=== PATIENT | male | born 1970 | race Caucasian/White ===

== ENCOUNTER 2020-03-19 13:09 | Emergency (ER) | payer BC ==
[~2020-03-19 13:09] MED LIST: Iopamidol-370 76% 500 ML 1 ML ONE
[2020-03-19 13:57] LABS: #Lymphocytes 0.8 thou/uL (1.20-3.40); #Monocytes 0.3 thou/uL (0.11-0.59); #Neutrophils 3.9 thou/uL (1.40-6.50); %Basophils 0.1 % (0.0-1.0); %Eosinophils 0.2 % (0.0-10.0); %Lymphocytes 16.5 % (21.0-51.0); %Monocytes 5.4 % (0.0-10.0); %Neutrophils 77.8 % (42.0-75.0); Mean Corpuscular HGB CONC 34.9 g/dL (32.0-36.0); Mean Corpuscular Hemoglobin 31.5 pg (27.0-31.0); Mean Corpuscular Volume 90.3 fL (78.0-98.0); Mean Platelet Volume 7.8 fL (7.4-10.4); Platelet Count 164 thou/uL (130-400); RBC Distribution Width 11.8 % (11.5-14.5); Red Blood Cell (RBC) Count 5.08 mill/uL (4.70-6.10)
[2020-03-19] MEDS ORDERED: Dexamethasone 10 MG/ML VIAL ONE (14:03)
[2020-03-19 14:13] LABS: ALT (SGPT) 27 U/L (8-55); AST (SGOT) 21 U/L (5-34); Alkaline Phosphatase 55 U/L (40-110); Anion Gap 17 mmol/L (10-20); BUN (Urea Nitrogen) 11 mg/dL (8.4-25.7); Bilirubin, Total 0.3 mg/dL (0.2-1.2); CK (CPK) 64 U/L (30-200); Calc. Creatinine Clearance 0 mL/min (70-130); Calcium 8.4 mg/dL (7.8-10.44); Carbon Dioxide 22 mmol/L (22-29); Chloride 98 mmol/L (98-107); Estimated GFR-MDRD 71; Globulin 3.5 g/dL (2.4-3.5); Glucose 256 mg/dL (70-105); Lipase 69 U/L (8-78); Potassium 3.2 mmol/L (3.5-5.1); Protein, Total 7.5 g/dL (6.0-8.3); Sodium 134 mmol/L (136-145)
--- NOTE | 2020-03-19 14:16 | RAD ---
EXAM: XR Chest 1 View Portable PROVIDED CLINICAL HISTORY: Cough and fever COMPARISON: 06/16/2016 FINDINGS: Heart size appears normal for portable technique. There is patchy bibasilar airspace disease. No pleu ral fluid or pneumothorax apparent. IMPRESSION: Patchy bibasilar airspace disease, compatible with pneumonia in the appropriate clinical context. Fol low-up is recommended.
--- NOTE | 2020-03-19 15:15 | CT ---
CT angiogram chest with IV contrast and 3-D imaging HISTORY: Dyspnea. Chest pain. Cough. FINDINGS: There is good contrast opacification of the central pulmonary arteries and the thoracic aor ta with normal branching of the great vessels at the aortic arch. Mid to peripheral pulmonary arteries are not well evaluated due to extensive motion artifact. Widespread ill-defined peripheral patchy areas of groundglass infiltrate involving each lung. No pleu ral fluid, lobar consolidation, or mass apparent. Nonenlarged, nonspecific lymph nodes scattered about the mediastinum. Calcified granulomata and mediastinal lymph nodes are consistent with healed granulomatous disease. IMPRESSION : No evidence of pulmonary embolus. Patchy bilateral infiltrates as often seen with COVID pneumonitis.
== END 2020-03-19 16:17 | disposition home or self-care (01) ==
LOC: ERS 13:09
DX: U07.1 COVID-19 (principal); I10 Essential (primary) hypertension; J45.909 Unspecified asthma, uncomplicated; Z79.899 Other long term (current) drug therapy
CPT/HCPCS: 71045; 71275; 80053; 82550; 83690; 83880; 84484; 85025; 85379; 93005; 96374; J1100; Q9967

== ENCOUNTER 2020-03-23 10:26 | Inpatient (IN) | payer BC ==
[2020-03-23] MEDS ORDERED: Aspirin Chewable 81 MG TAB ONE (10:43)
[2020-03-23] MEDS ORDERED: Enoxaparin Sodium 100 MG/ML SYRINGE ONE (10:45)
[2020-03-23] MEDS ORDERED: Dexamethasone 10 MG/ML VIAL ONE (10:45)
[2020-03-23] MEDS ORDERED: Sodium Chloride 0.9% 100 ML ONE (10:49)
[2020-03-23] MEDS ORDERED: cefTRIAXone\\ROCEPHIN 2 GM VIAL ONE (10:49)
[2020-03-23] MEDS ORDERED: Azithromycin 250 MG in Sodium Chloride 0.9% 250 ML 250 ML IVPB SCH (11:00)
--- NOTE | 2020-03-23 11:14 | RAD ---
Frontal radiograph chest portable upright: 03/23/2020 COMPARISON: 03/19/2020 HISTORY: Shortness of breath, Covid positive patient FINDINGS: As seen on recent prior chest x-ray and CT angiogram of the chest performed 03/19/2020, the re are interstitial and alveolar opacities typical of Covid pneumonia. These opacities are most prominent in the perihilar regions and both lung bases and appear to have worsened slightly when comp ared to the 03/19/2020 exam. There is no pneumothorax or large volume pleural effusion. IMPRESSION: Interstitial and alveolar/ground glass opacity bilaterally, worsened since the prior exam ination, suspicious for atypical infectious pneumonitis/Covid 19 pneumonia
[2020-03-23 11:18] LABS: #Lymphocytes 0.5 thou/uL (1.20-3.40); #Monocytes 0.3 thou/uL (0.11-0.59); #Neutrophils 6.2 thou/uL (1.40-6.50); %Lymphocytes 6.4 % (21.0-51.0); %Monocytes 4.8 % (0.0-10.0); %Neutrophils 88.8 % (42.0-75.0); Hemoglobin 15.1 g/dL (14.0-18.0); Mean Corpuscular HGB CONC 34.5 g/dL (32.0-36.0); Mean Corpuscular Hemoglobin 30.5 pg (27.0-31.0); Mean Corpuscular Volume 88.3 fL (78.0-98.0); Mean Platelet Volume 7.2 fL (7.4-10.4); Platelet Count 213 thou/uL (130-400); RBC Distribution Width 11.8 % (11.5-14.5); Red Blood Cell (RBC) Count 4.97 mill/uL (4.70-6.10)
[2020-03-23 11:40] LABS: ALT (SGPT) 29 U/L (8-55); AST (SGOT) 18 U/L (5-34); Albumin 3.8 g/dL (3.5-5.0); Alkaline Phosphatase 50 U/L (40-110); Anion Gap 18 mmol/L (10-20); BUN (Urea Nitrogen) 18 mg/dL (8.4-25.7); Bilirubin, Total 0.6 mg/dL (0.2-1.2); CK (CPK) 47 U/L (30-200); Calc. Creatinine Clearance 0 mL/min (70-130); Carbon Dioxide 23 mmol/L (22-29); Chloride 99 mmol/L (98-107); Estimated GFR-MDRD 86; Globulin 2.9 g/dL (2.4-3.5); Glucose 272 mg/dL (70-105); Lipase 69 U/L (8-78); Potassium 3.6 mmol/L (3.5-5.1); Protein, Total 6.7 g/dL (6.0-8.3); Sodium 136 mmol/L (136-145)
[2020-03-23] MEDS ORDERED: Ondansetron PF 4 MG/2 ML Vial IVP PRN (12:09)
[2020-03-23] MEDS ORDERED: Bisacodyl 10 MG SUPP PR PRN (12:09)
[2020-03-23] MEDS ORDERED: Dextrose 5% in Water 1,000 ML IV PRN (12:09)
[2020-03-23] MEDS ORDERED: Senokot S 8.6-50 MG TAB PO PRN (12:09)
[2020-03-23] MEDS ORDERED: Dextrose 50% Abboject 50 ML SYRINGE SLOW IVP PRN (12:09)
[2020-03-23] MEDS ORDERED: Lorazepam 2 MG/ML VIAL ONE (12:18)
[2020-03-23 14:06] LABS: Troponin I Less than 0.010 ng/mL (< 0.028)
[2020-03-23 15:13] LABS: SARS-CoV-2 NAA Rapid Test DETECTED (NotDetected)
--- NOTE | 2020-03-23 15:34 | HP ---
REASON FOR ADMISSION: Possible COVID-19 pneumonia, acute respiratory failure with hypoxia. HISTORY OF PRESENTING ILLNESS: The patient gives history of being sick from Wednesday. He started developing shortness of breath with dry cough and runny nose initially. His and children were positive as well. This has been gradually progressing to the point he became short of breath and came to ER on the . He was given a prescription for Zithromax and steroids and sent home. The patient was advised to check his saturations and if it drops less than 90% to come back to ER. This morning, he was having palpitations and short of breath. His persuaded him to come to the emergency room. On arrival, the patient had saturations dropping into 86% and was placed on high-flow oxygen. He has had a temperature of 99 degrees on arrival. PAST MEDICAL AND SURGICAL HISTORY: History of asthma and hypertension. No prior surgeries. CURRENT MEDICATIONS: The patient is on; 1. Breo Ellipta inhaler. 2. Losartan with hydrochlorothiazide 100/12.5 mg daily. 3. Singulair 10 mg daily. 4. He was on prednisone and Zithromax from . ALLERGIES: NO KNOWN DRUG ALLERGIES. PERSONAL HISTORY: Does not abuse alcohol or drugs. No history of smoking. He drinks beer on the weekends on social occasions. Lives with his . FAMILY HISTORY: Both parents are , mother was 91, father was 81. They of natural causes as far as he knows. Mother was diabetic as well. CODE STATUS: Full. Power of assistant district attorney is his . REVIEW OF SYSTEMS: CONSTITUTIONAL: Negative for weight loss or gain, ability to conduct usual activities. SKIN: Negative for rash, itching. EYES: Negative for double vision, pain. ENT/MOUTH: Negative for nose bleeding, neck stiffness, pain, tenderness. CARDIOVASCULAR: Negative for palpitations, dyspnea on exertion, orthopnea. RESPIRATORY: Negative for shortness of breath, wheezing, cough, hemoptysis, fever or night sweats. GASTROINTESTINAL: Negative for poor appetite, abdominal pain, heartburn, nausea, vomiting, constipation, or diarrhea. GENITOURINARY: Negative for urgency, frequency, dysuria, nocturia. MUSCULOSKELETAL: Negative for pain, swelling. NEUROLOGIC/PSYCHIATRIC: Negative for anxiety, depression. ALLERGY/IMMUNOLOGIC: Negative for skin rash, bleeding tendency. PHYSICAL EXAMINATION: GENERAL: The patient is a 49-year-old male, who is currently on high-flow and is not in any distress. VITAL SIGNS: Blood pressure 150/96, pulse 94 per minute, respiratory rate 24 per minute, temperature 99.1 degrees Fahrenheit, and saturating 95% on high-flow oxygen. NECK: Supple. No elevated JVD. HEENT: Eyes; extraocular muscles intact. Pupils reacting to light. Oral cavity, mucous membranes are dry. No exudates or congestion. CARDIOVASCULAR: S1-S2 heard, regular rhythm. RESPIRATORY: Air entry 1+ bilateral. Coarse rales plus bilateral. ABDOMEN: Soft. Bowel sounds heard. No tenderness, rigidity, or guarding. EXTREMITIES: No peripheral edema or calf tenderness. VASCULAR: Peripheral pulses 1+ bilateral. No ischemic ulcerations or gangrene. CENTRAL NERVOUS SYSTEM: No gross focal motor deficits noted. The patient is alert, awake, and oriented well. PSYCHIATRIC: The patient's mood is euthymic. No hallucinations or delusions. LABORATORY DATA: Chest x-ray done shows bilateral patchy infiltrates. CRP is 4.69. Ferritin 980. Troponin x2 negative. Serum glucose 272, BUN 18, creatinine 0.9. LFTs are within normal limits. BNP is 20. Albumin 3.8. BUN 18, creatinine 0.9. H and H 15 and 43 platelet count 213 with 88% neutrophils, white count of 7. D-dimer 0.43. EKG done shows sinus tach at 102 beats per minute. The signs of LVH seen. CLINICAL IMPRESSION AND PLAN: The patient will be admitted to medical floor for acute respiratory failure with hypoxia, likely from COVID-19 pneumonia. He has had a prior CAT scan done on , which showed infiltrates as well. He has had progression of his symptoms, now resulting in him being on high-flow. He has known history of asthma and weighs nearly 102 kg. Awaiting his PCR test to come back and the patient will be started on remdesivir. I have discussed his findings with Dr. Atwood and he agrees with remdesivir dosing. He will be on dexamethasone 6 mg IV daily along with DuoNeb q.6 hourly. The patient likely has glucose intolerance. He is not a diabetic before. The patient was on prednisone from last 4 days leading up his sugars now. He will be placed on Lantus 10 units subcu twice daily. The patient sees Dr. Hill in the outpatient setting for asthma. If he were to worsen, we will consult him while he is here. We will continue to closely monitor him on medical floor. Job ID: [id number]
[2020-03-23] MEDS ORDERED: REMDESIVIR (EUA) 200 MG in Sodium Chloride 0.9% 250 ML 210 ML IV SCH (16:00)
[2020-03-23 17:10] LABS: Troponin I Less than 0.010 ng/mL (< 0.028)
[2020-03-23 17:16] VITALS: BMI 31.0
[2020-03-23] MEDS: HumaLOG 300 UNITS/3 ML VIAL SC PRN ×2 (19:41→21:21)
[2020-03-23] MEDS: Albuterol 200 PUFF (6.7GM INHALER) INH SCH (20:30)
[2020-03-23] MEDS: Famotidine 20 MG TAB PO SCH (20:31)
[2020-03-23] MEDS: Insulin Glargine 10 UNITS in Pre-Filled Syringe 1 EACH SC SCH (20:31)
[2020-03-23] MEDS: Acetaminophen 325 MG TAB PO PRN (20:32)
[2020-03-23] MEDS: Guaifenesin DM 100-10/5 ML UDCUP PO PRN (20:32)
[2020-03-24] MEDS: Albuterol 200 PUFF (6.7GM INHALER) INH SCH ×4 (00:17→20:50)
[2020-03-24] MEDS: Acetaminophen 325 MG TAB PO PRN (00:44)
[2020-03-24] MEDS ORDERED: ALPRAZolam 0.25 MG TAB PO SCH (00:45)
[2020-03-24] MEDS: HumaLOG 300 UNITS/3 ML VIAL SC PRN ×4 (06:10→21:03)
[2020-03-24] MEDS: Guaifenesin DM 100-10/5 ML UDCUP PO PRN ×3 (06:13→20:52)
[2020-03-24 06:59] LABS: #Monocytes 0.5 thou/uL (0.11-0.59); #Neutrophils 8.3 thou/uL (1.40-6.50); %Basophils 0.2 % (0.0-1.0); %Eosinophils 0.1 % (0.0-10.0); %Lymphocytes 10.5 % (21.0-51.0); %Monocytes 4.7 % (0.0-10.0); %Neutrophils 84.6 % (42.0-75.0); Hemoglobin 14.4 g/dL (14.0-18.0); Mean Corpuscular HGB CONC 32.8 g/dL (32.0-36.0); Mean Corpuscular Hemoglobin 29.5 pg (27.0-31.0); Mean Corpuscular Volume 90.2 fL (78.0-98.0); Mean Platelet Volume 6.8 fL (7.4-10.4); Platelet Count 285 thou/uL (130-400); RBC Distribution Width 11.7 % (11.5-14.5); Red Blood Cell (RBC) Count 4.88 mill/uL (4.70-6.10); White Blood Cell (WBC) Count 9.9 thou/uL (4.8-10.8)
[2020-03-24 07:20] LABS: ALT (SGPT) 24 U/L (8-55); AST (SGOT) 18 U/L (5-34); Albumin 3.5 g/dL (3.5-5.0); Alkaline Phosphatase 47 U/L (40-110); Anion Gap 16 mmol/L (10-20); BUN (Urea Nitrogen) 15 mg/dL (8.4-25.7); Bilirubin, Total 0.4 mg/dL (0.2-1.2); Calc. Creatinine Clearance 167 mL/min (70-130); Calcium 8.2 mg/dL (7.8-10.44); Carbon Dioxide 21 mmol/L (22-29); Chloride 100 mmol/L (98-107); Estimated GFR-MDRD Greater than 90; Globulin 3.4 g/dL (2.4-3.5); Glucose 186 mg/dL (70-105); Potassium 3.5 mmol/L (3.5-5.1); Protein, Total 6.9 g/dL (6.0-8.3); Sodium 133 mmol/L (136-145)
[2020-03-24] MEDS: Famotidine 20 MG TAB PO SCH ×2 (08:24→20:50)
[2020-03-24] MEDS: Enoxaparin Sodium 40 MG/0.4 ML SYRINGE SC SCH (08:24)
[2020-03-24] MEDS ORDERED: FLU VACC QS2020-21(6MOS UP)/PF 60 MCG/0.5 ML SYRINGE IM ONE (09:00)
[2020-03-24] MEDS: Insulin Glargine 10 UNITS in Pre-Filled Syringe 1 EACH SC SCH ×2 (10:28→20:51)
[2020-03-24] MEDS: Dexamethasone 6 MG in Sodium Chloride 0.9% 50 ML IVPB SCH (10:29)
--- NOTE | 2020-03-24 13:25 | PDOC.HOSPP ---
- Subjective Encounter Date: 03/24/20 Encounter Time: 13:20 Subjective: f/u for COVID PNA on current O2 @ 3.5L/min NC previously on high-flow. Anxiety reported per nursing but overall better today. Receiving Dexamethasone/Remdesivir/Albuterol MDI/ - Objective Vital Signs & Weight: Vital Signs (12 hours) Pulse Resp Pulse Ox 03/24/20 04:30 72 20 99 Weight Weight 229 lb I&O: 03/23/20 03/24/20 03/25/20 06:59 06:59 06:59 Intake Total 820 Output Total 600 Balance 220 Result Diagrams: 03/24/20 06:22 03/24/20 06:22 Additional Labs: Accuchecks 03/24/20 03/23/20 06:08 20:43 POC Glucose 196 H 261 H Microbiology 03/23/20 10:48 Venous blood - Right Arm Blood Culture - Preliminary Specimen has been received and culture in progress. No Growth to date. 03/23/20 10:48 Venous blood - Left Arm Blood Culture - Preliminary Specimen has been received and culture in progress. No Growth to date. Laboratory Tests 03/23/20 03/23/20 03/23/20 10:46 10:48 12:38 D-Dimer 0.43 Ferritin 980.56 H C-Reactive Protein 4.69 H SARS-CoV-2 Rap RNA(RT-PCR) 03/23/20 14:12 D-Dimer Ferritin C-Reactive Protein SARS-CoV-2 Rap RNA(RT-PCR) DETECTED A* Radiology Reviewed by me: Yes (PCXR - bilat interstitial infiltrates) Hospitalist ROS - Medication Medications: Active Medications Generic Name Dose Route Start Last Admin Trade Name Freq PRN Reason Stop Dose Admin Acetaminophen 650 mg 03/23/20 12:09 03/24/20 00:44 Acetaminophen 325 Mg Tab PO 650 mg Q4H PRN Administration Headache/Fever/Mild Pain (1-3) Albuterol Sulfate 2 puff 03/23/20 19:00 03/24/20 12:47 Albuterol 200 Puff (6.7gm Inhaler) INH 2 puff [id number] JANNA Administration Enoxaparin Sodium 40 mg 03/24/20 09:00 03/24/20 08:24 Enoxaparin Sodium 40 Mg/0.4 Ml Syringe SC 40 mg 0900 JANNA Administration Famotidine 20 mg 03/23/20 21:00 03/24/20 08:24 Famotidine 20 Mg Tab PO 20 mg BID JANNA Administration Guaifenesin/Dextromethorphan 15 ml 03/23/20 12:09 03/24/20 11:46 Guaifenesin Dm 100-10/5 Ml Udcup PO 15 ml Q4H PRN Administration Cough Insulin Glargine 10 units/ 0.1 mls @ 0 mls/hr 03/23/20 21:00 03/24/20 10:28 Miscellaneous Medication SC 0.1 mls BID JANNA Administration Dexamethasone 6 mg/ Sodium 50.6 mls @ 100 mls/hr 03/24/20 09:00 03/24/20 10:29 Chloride IVPB 50.6 mls DAILY JANNA Administration Insulin Human Lispro 0 units 03/23/20 12:09 03/24/20 06:10 Humalog 300 Units/3 Ml Vial SC 2 unit .MODERATE SLIDING SC PRN Administration Moderate Correctional Scale Insulin Human Lispro 0 units 03/23/20 12:09 03/23/20 21:21 Humalog 300 Units/3 Ml Vial SC 3 unit .BEDTIME SLIDING SC PRN Administration Bedtime Correctional Scale - Exam General Appearance: NAD, awake alert Eye: PERRL, anicteric sclera ENT: normocephalic atraumatic, no oropharyngeal lesions Neck: supple, symmetric, no JVD, no thyromegaly, no lymphadenopathy Heart: RRR, no gallops, no rubs, normal peripheral pulses Respiratory: normal chest expansion, no tachypnea Respiratory - other findings: diminished in bases, few coarse sounds bilat Gastrointestinal: soft, non-tender, non-distended, normal bowel sounds, no palpable masses Extremities: no cyanosis, no clubbing, no edema Skin: normal turgor, no lesions Neurological: cranial nerve grossly intact, no new deficit Musculoskeletal: normal tone, normal strength, no muscle wasting Psychiatric: normal affect, A&O x 3 Hosp A/P (1) Pneumonia due to COVID-19 virus Code(s): U07.1 - COVID-19; J12.89 - OTHER VIRAL PNEUMONIA Status: Acute Plan: Continue Remdesivir/Dexamethasone/Albuterol/Lovenox, add Vit C/Zinc, O2 via NC 3.5L/min (2) Acute respiratory failure with hypoxia Code(s): J96.01 - ACUTE RESPIRATORY FAILURE WITH HYPOXIA Status: Acute Plan: continue O2 supplementation, may need home O2 (3) Asthma Code(s): J45.909 - UNSPECIFIED ASTHMA, UNCOMPLICATED Status: Chronic Qualifiers: Asthma severity: moderate Plan: Continue supportive mgmt, resume Breo Ellipta/Incruse/Singulair (4) Hyperglycemia Code(s): R73.9 - HYPERGLYCEMIA, UNSPECIFIED Status: Acute Plan: Likely due to steroids, serial accuchecks, check A1C, Lantus 10u HS - 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
[2020-03-24] MEDS ORDERED: Ascorbic Acid 500 mg Chewable Tablet PO SCH (14:00)
[2020-03-24] MEDS ORDERED: Zinc Sulfate 220 MG CAP PO SCH (14:00)
[2020-03-24] MEDS: REMDESIVIR (EUA) 100 MG in Sodium Chloride 0.9% 250 ML 230 ML IV SCH (16:10)
[2020-03-24] MEDS: Azithromycin 500 MG in Sodium Chloride 0.9% 250 ML 250 ML IVPB SCH (16:41)
--- NOTE | 2020-03-24 17:25 | CON ---
DATE OF CONSULTATION: 03/24/2020 REASON FOR CONSULTATION: COVID infection. HISTORY OF PRESENT ILLNESS: A 49-year-old, history of hypertension, asthma, hyperlipidemia, who developed symptoms of SARS-CoV-2 infection beginning of the week, sent home initially, but there was deterioration in respiratory function, so he was admitted. On arrival, blood pressure 150/99, pulse 97, respirations 23, temperature 99, and O2 saturation was 95% on 2 L. He is in distress when he came in, tachypneic. Lungs were described as clear. Heart examination normal. Initial findings included a white cell count 7.0, hemoglobin 15, platelets 213, with 88% neutrophils, D-dimer was 0.43, ferritin was elevated at 980, and CRP 4.69. SARS-CoV was detected. Two sets of blood cultures, no growth. Chest x-ray with diffuse infiltrates. He has been placed on remdesivir, Decadron, and azithromycin. He is currently feeling better. He wants to go home, but he desaturates as noted below. He had no headaches. A little bit of cough when he takes deep breaths. No abdominal pain or diarrhea. No genitourinary symptoms. No neurological symptoms. PAST MEDICAL HISTORY: Hypertension, hyperlipidemia, asthma. ALLERGIES: HE HAS NO ALLERGIES. PAST SURGICAL HISTORY: Negative. SOCIAL HISTORY: Drinks weekly. Never smoker. . MEDICATIONS: Before admission, he was on: 1. Breo Ellipta. 2. Losartan/hydrochlorothiazide. 3. Montelukast. 4. Hydroxychloroquine. 5. Motrin. 6. Prednisone. Here, he is on: 1. Remdesivir. 2. Decadron. 3. P.r.n. medications. 4. Enoxaparin daily. 5. Ondansetron. 6. Insulin. PHYSICAL EXAMINATION: VITAL SIGNS: T-max 99.7, blood pressure 120/80, heart rate 87, respiratory rate 20, O2 saturation 98% on 3-1/2 L nasal cannula. His sats with this setting at rest are around 94% to 95%, but when just a brief period of exercise, will drop his sats to 86% to 87%. SKIN: Normal. Peripheral IV access. : Voiding spontaneously in the toilet. LYMPHS: No lymphadenopathy. HEENT: Ocular movements conjugate. Oral cavity normal. LUNGS: With a few crackles at the bases. He has quite limited air excursions. He cannot take deep breaths from obvious inflammatory change in the lungs. HEART: S1 and S2, regular rate. ABDOMEN: Soft. Not distended or tender. No ascites. No bladder distention. EXTREMITIES: No edema. Pulses 1+ in dorsalis pedis. NEUROLOGIC: Cognitive function appears to be intact. LABORATORY DATA: Latest labs; white cell count 9.9, hemoglobin 14, platelets 285. ASSESSMENT: [id number] COVID pneumonia. He has quite a bit of inflammatory activity in his lungs with marked desaturation after brief exertion. He wanted to go home and I explained to him that he is not in a situation that would allow a safe discharge, so I strongly advised him to stay in the hospital, continue to be treated, and see if we can avoid further deterioration. Continue remdesivir, Decadron, Lovenox. Monitoring markers daily. Job ID: [id number]
[2020-03-24] MEDS: ALPRAZolam 0.25 MG TAB PO SCH (20:50)
[2020-03-25] MEDS: Albuterol 200 PUFF (6.7GM INHALER) INH SCH ×4 (00:27→18:06)
[2020-03-25] MEDS: Guaifenesin DM 100-10/5 ML UDCUP PO PRN ×2 (06:34→21:50)
[2020-03-25 06:41] LABS: Hemoglobin A1c 7.9 % (4.0-6.0)
[2020-03-25 06:58] LABS: Anion Gap 12 mmol/L (10-20); BUN (Urea Nitrogen) 16 mg/dL (8.4-25.7); CRP (Inflammatory) 3.51 mg/dL (= or < 0.5); Calc. Creatinine Clearance 176 mL/min (70-130); Calcium 8.2 mg/dL (7.8-10.44); Carbon Dioxide 28 mmol/L (22-29); Chloride 100 mmol/L (98-107); Estimated GFR-MDRD Greater than 90; Glucose 132 mg/dL (70-105); Potassium 3.3 mmol/L (3.5-5.1); Sodium 137 mmol/L (136-145)
[2020-03-25 07:00] LABS: ALT (SGPT) 23 U/L (8-55); AST (SGOT) 17 U/L (5-34); Albumin 3.4 g/dL (3.5-5.0); Alkaline Phosphatase 43 U/L (40-110); Bilirubin, Direct 0.3 mg/dL (0.1-0.3); Bilirubin, Total 0.5 mg/dL (0.2-1.2); Protein, Total 6.6 g/dL (6.0-8.3)
[2020-03-25] MEDS: Ascorbic Acid 500 mg Chewable Tablet PO SCH (07:43)
[2020-03-25] MEDS: Enoxaparin Sodium 40 MG/0.4 ML SYRINGE SC SCH (07:43)
[2020-03-25] MEDS: ALPRAZolam 0.25 MG TAB PO SCH ×2 (07:43→21:43)
[2020-03-25] MEDS: Zinc Sulfate 220 MG CAP PO SCH (07:43)
[2020-03-25] MEDS: Famotidine 20 MG TAB PO SCH ×2 (07:43→21:44)
[2020-03-25] MEDS: Dexamethasone 6 MG in Sodium Chloride 0.9% 50 ML IVPB SCH (09:28)
[2020-03-25] MEDS: Insulin Glargine 10 UNITS in Pre-Filled Syringe 1 EACH SC SCH ×2 (09:28→21:50)
[2020-03-25] MEDS: HumaLOG 300 UNITS/3 ML VIAL SC PRN ×3 (11:32→21:54)
[2020-03-25] MEDS: REMDESIVIR (EUA) 100 MG in Sodium Chloride 0.9% 250 ML 230 ML IV SCH (15:45)
--- NOTE | 2020-03-25 16:21 | PRG ---
DATE OF SERVICE: 03/25/2020 SUBJECTIVE: Doing about the same as yesterday, maybe a little better. No chest pain. No abdominal pain or diarrhea. No genitourinary symptoms. No neurological issues. OBJECTIVE: VITAL SIGNS: His T-max 98.7, saturations at 2 L are 96% which is some improvement compared with yesterday, still desaturating quickly once he starts to move around. LUNGS: Still with restriction in his vital capacity and crackles at the bases. HEART: S1 and S2, regular rate. ABDOMEN: Soft, not distended. EXTREMITIES: Moves all extremities equally. LABORATORY DATA: His WBC count 9.9, hemoglobin 14, platelets 285, 84% neutrophils. D-dimer 0.59. Creatinine 0.73. Liver profile normal. Ferritin is still not much better at 1002. CRP is down somewhat to 3.51. ASSESSMENT AND DISCUSSION: [id number] COVID pneumonia with still quite a bit of desaturation on brief exertion. Started on therapy. Remdesivir, Decadron, Lovenox to be continued. Still needs to get better before his discharge planning is considered. Job ID: [id number]
[2020-03-25] MEDS: Azithromycin 500 MG in Sodium Chloride 0.9% 250 ML 250 ML IVPB SCH (16:44)
--- NOTE | 2020-03-25 17:28 | PDOC.HOSPP ---
- Subjective Encounter Date: 03/25/20 Encounter Time: 17:25 Subjective: f/u COVID PNA/hypoxic resp failure receiving Zithromax/Dexamethasone/Remdesivir/Vit C/Zinc. Overall feels better. Ambulating in room. - Objective Vital Signs & Weight: Vital Signs (12 hours) Temp Pulse Resp BP Pulse Ox 03/25/20 16:08 96 03/25/20 11:00 98.1 F 100 18 135/93 H 96 03/25/20 08:09 97 03/25/20 08:00 97.9 F 100 20 135/87 93 L Weight Admit Weight 229 lb Weight 229 lb I&O: 03/24/20 03/25/20 03/26/20 06:59 06:59 06:59 Intake Total 820 1940 Output Total 600 1100 Balance 220 840 Result Diagrams: 03/24/20 06:22 03/25/20 06:23 Additional Labs: Accuchecks 03/25/20 03/25/20 03/25/20 16:02 11:00 04:27 POC Glucose 288 H 157 H 139 H 03/24/20 03/24/20 03/24/20 20:54 16:22 13:06 POC Glucose 219 H 209 H 253 H Microbiology 03/23/20 10:48 Venous blood - Right Arm Blood Culture - Preliminary Specimen has been received and culture in progress. No Growth to date. 03/23/20 10:48 Venous blood - Left Arm Blood Culture - Preliminary Specimen has been received and culture in progress. No Growth to date. Laboratory Tests 03/23/20 03/23/20 03/23/20 10:46 10:48 12:38 D-Dimer 0.43 Ferritin 980.56 H C-Reactive Protein 4.69 H SARS-CoV-2 Rap RNA(RT-PCR) 03/23/20 14:12 D-Dimer Ferritin C-Reactive Protein SARS-CoV-2 Rap RNA(RT-PCR) DETECTED A* Laboratory Tests 03/25/20 06:23 Hemoglobin A1c 7.9 H Hospitalist ROS - Medication Medications: Active Medications Generic Name Dose Route Start Last Admin Trade Name Freq PRN Reason Stop Dose Admin Acetaminophen 650 mg 03/23/20 12:09 03/24/20 00:44 Acetaminophen 325 Mg Tab PO 650 mg Q4H PRN Administration Headache/Fever/Mild Pain (1-3) Albuterol Sulfate 2 puff 03/23/20 19:00 03/25/20 13:00 Albuterol 200 Puff (6.7gm Inhaler) INH 2 puff [id number] JANNA Administration Alprazolam 0.25 mg 03/24/20 21:00 03/25/20 07:43 Alprazolam 0.25 Mg Tab PO 0.25 mg BID JANNA Administration Ascorbic Acid 1,000 mg 03/25/20 09:00 03/25/20 07:43 Ascorbic Acid 500 Mg Chewable Tablet PO 1,000 mg DAILY JANNA Administration Enoxaparin Sodium 40 mg 03/24/20 09:00 03/25/20 07:43 Enoxaparin Sodium 40 Mg/0.4 Ml Syringe SC 40 mg 0900 JANNA Administration Famotidine 20 mg 03/23/20 21:00 03/25/20 07:43 Famotidine 20 Mg Tab PO 20 mg BID JANNA Administration Guaifenesin/Dextromethorphan 15 ml 03/23/20 12:09 03/25/20 06:34 Guaifenesin Dm 100-10/5 Ml Udcup PO 15 ml Q4H PRN Administration Cough Insulin Glargine 10 units/ 0.1 mls @ 0 mls/hr 03/23/20 21:00 03/25/20 09:28 Miscellaneous Medication SC 0.1 mls BID JANNA Administration Dexamethasone 6 mg/ Sodium 50.6 mls @ 100 mls/hr 03/24/20 09:00 03/25/20 09:28 Chloride IVPB 50.6 mls DAILY JANNA Administration Remdesivir 100 mg/ Sodium 250 mls @ 250 mls/hr 03/24/20 16:00 03/25/20 15:45 Chloride IV 03/27/20 16:59 250 mls 1600 JANNA Administration Azithromycin 500 mg/ Sodium 250 mls @ 250 mls/hr 03/24/20 16:00 03/25/20 16:4 4 Chloride IVPB 250 mls [id number] JANNA Administration Insulin Human Lispro 0 units 03/23/20 12:09 03/25/20 16:44 Humalog 300 Units/3 Ml Vial SC 6 unit .MODERATE SLIDING SC PRN Administration Moderate Correctional Scale Insulin Human Lispro 0 units 03/23/20 12:03/24/20 21:03 Humalog 300 Units/3 Ml Vial SC 2 unit .BEDTIME SLIDING SC PRN Administration Bedtime Correctional Scale Zinc Sulfate 220 mg 03/25/20 09:00 03/25/20 07:43 Zinc Sulfate 220 Mg Cap PO 220 mg DAILY JANNA Administration - Exam General Appearance: NAD, awake alert Eye: PERRL, anicteric sclera ENT: normocephalic atraumatic, no oropharyngeal lesions Neck: supple, symmetric, no JVD, no thyromegaly, no lymphadenopathy Heart: RRR, no murmur, no gallops, no rubs, normal peripheral pulses Heart - other findings: S1, S2 Respiratory: CTAB, no wheezes, no rales, no ronchi, normal chest expansion, no tachypnea Gastrointestinal: soft, non-tender, non-distended, normal bowel sounds, no palpable masses Extremities: no cyanosis, no clubbing, no edema Skin: normal turgor, no lesions Neurological: cranial nerve grossly intact, no new deficit Musculoskeletal: normal tone, normal strength, no muscle wasting Psychiatric: normal affect, A&O x 3 Hosp A/P (1) Pneumonia due to COVID-19 virus Code(s): U07.1 - COVID-19; J12.89 - OTHER VIRAL PNEUMONIA Status: Acute Plan: Continue Remdesivir/Dexamethasone/Zithromax/Lovenox/Vit C/Zinc, wean O2 as clinically indicated (2) Acute respiratory failure with hypoxia Code(s): J96.01 - ACUTE RESPIRATORY FAILURE WITH HYPOXIA Status: Acute Plan: Wean O2 as noted above (3) Asthma Code(s): J45.909 - UNSPECIFIED ASTHMA, UNCOMPLICATED Status: Chronic Qualifiers: Asthma severity: moderate (4) Hyperglycemia Code(s): R73.9 - HYPERGLYCEMIA, UNSPECIFIED Status: Acute Plan: Appears pt is DM II, start low-dose Metformin 500mg BID, DM education - Plan 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
[2020-03-25] MEDS ORDERED: metFORMIN 500 MG TAB PO SCH (17:45)
[2020-03-26] MEDS: Albuterol 200 PUFF (6.7GM INHALER) INH SCH ×4 (01:29→17:41)
[2020-03-26 06:52] LABS: Anion Gap 13 mmol/L (10-20); BUN (Urea Nitrogen) 17 mg/dL (8.4-25.7); CRP (Inflammatory) 2.08 mg/dL (= or < 0.5); Calc. Creatinine Clearance 178 mL/min (70-130); Calcium 7.9 mg/dL (7.8-10.44); Carbon Dioxide 25 mmol/L (22-29); Chloride 103 mmol/L (98-107); Estimated GFR-MDRD Greater than 90; Glucose 145 mg/dL (70-105); Potassium 3.3 mmol/L (3.5-5.1); Sodium 138 mmol/L (136-145)
[2020-03-26 07:00] LABS: ALT (SGPT) 25 U/L (8-55); AST (SGOT) 17 U/L (5-34); Albumin 3.2 g/dL (3.5-5.0); Alkaline Phosphatase 40 U/L (40-110); Bilirubin, Direct 0.3 mg/dL (0.1-0.3); Bilirubin, Total 0.6 mg/dL (0.2-1.2); Protein, Total 6.2 g/dL (6.0-8.3)
[2020-03-26] MEDS: Dexamethasone 6 MG in Sodium Chloride 0.9% 50 ML IVPB SCH (08:21)
[2020-03-26] MEDS: Insulin Glargine 10 UNITS in Pre-Filled Syringe 1 EACH SC SCH ×2 (08:21→21:06)
[2020-03-26] MEDS: Zinc Sulfate 220 MG CAP PO SCH (08:22)
[2020-03-26] MEDS: ALPRAZolam 0.25 MG TAB PO SCH ×2 (08:22→21:06)
[2020-03-26] MEDS: metFORMIN 500 MG TAB PO SCH ×2 (08:22→16:25)
[2020-03-26] MEDS: Famotidine 20 MG TAB PO SCH ×2 (08:27→21:05)
[2020-03-26] MEDS: Ascorbic Acid 500 mg Chewable Tablet PO SCH (09:45)
[2020-03-26] MEDS: Enoxaparin Sodium 40 MG/0.4 ML SYRINGE SC SCH (09:45)
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
[2020-03-26] MEDS: HumaLOG 300 UNITS/3 ML VIAL SC PRN ×2 (13:03→16:25)
[2020-03-26] MEDS: Azithromycin 500 MG in Sodium Chloride 0.9% 250 ML 250 ML IVPB SCH (16:25)
[2020-03-26] MEDS: REMDESIVIR (EUA) 100 MG in Sodium Chloride 0.9% 250 ML 230 ML IV SCH (17:41)
[2020-03-26] MEDS: Potassium Chloride 20 MEQ TAB PO SCH (21:05)
[2020-03-27] MEDS: Albuterol 200 PUFF (6.7GM INHALER) INH SCH ×3 (02:15→12:06)
[2020-03-27] MEDS: Guaifenesin DM 100-10/5 ML UDCUP PO PRN (06:49)
[2020-03-27] MEDS: Famotidine 20 MG TAB PO SCH (08:25)
[2020-03-27] MEDS: ALPRAZolam 0.25 MG TAB PO SCH (08:25)
[2020-03-27] MEDS: Zinc Sulfate 220 MG CAP PO SCH (08:25)
[2020-03-27] MEDS: Potassium Chloride 20 MEQ TAB PO SCH (08:25)
[2020-03-27] MEDS: metFORMIN 500 MG TAB PO SCH (08:26)
[2020-03-27] MEDS: Enoxaparin Sodium 40 MG/0.4 ML SYRINGE SC SCH (08:26)
[2020-03-27] MEDS: Insulin Glargine 10 UNITS in Pre-Filled Syringe 1 EACH SC SCH (08:30)
[2020-03-27] MEDS: Ascorbic Acid 500 mg Chewable Tablet PO SCH (08:30)
[2020-03-27] MEDS: Dexamethasone 6 MG in Sodium Chloride 0.9% 50 ML IVPB SCH (08:31)
[2020-03-27 09:20] LABS: Anion Gap 14 mmol/L (10-20); BUN (Urea Nitrogen) 18 mg/dL (8.4-25.7); CRP (Inflammatory) 1.09 mg/dL (= or < 0.5); Calc. Creatinine Clearance 160 mL/min (70-130); Calcium 8.4 mg/dL (7.8-10.44); Carbon Dioxide 23 mmol/L (22-29); Chloride 103 mmol/L (98-107); Estimated GFR-MDRD Greater than 90; Glucose 202 mg/dL (70-105); Potassium 3.3 mmol/L (3.5-5.1); Sodium 137 mmol/L (136-145)
[2020-03-27 09:21] LABS: ALT (SGPT) 61 U/L (8-55); AST (SGOT) 36 U/L (5-34); Albumin 3.5 g/dL (3.5-5.0); Alkaline Phosphatase 49 U/L (40-110); Bilirubin, Direct 0.4 mg/dL (0.1-0.3); Bilirubin, Total 0.7 mg/dL (0.2-1.2); Protein, Total 6.8 g/dL (6.0-8.3)
--- NOTE | 2020-03-27 11:27 | DIS ---
DATE OF ADMISSION: 03/23/2020 DATE OF DISCHARGE: 03/27/2020 DISCHARGE DIAGNOSES: 1. Pneumonia due to COVID-19 virus. 2. Acute hypoxic respiratory failure secondarily to #1. 3. Diabetes mellitus type 2, new diagnosis. 4. Chronic asthma, moderate. CONSULTATIONS: Dr. Carl Atwood with Infectious Disease Service. PERTINENT LABORATORY AND X-RAY FINDINGS: Potassium ranged between 3.3 to 3.6, hemoglobin A1c 7.9, ferritin ranged between 858 to 1038. CRP ranged between 1.09 to 4.69. BNP 20. CBC within normal limits. D-dimer ranged between 0.43 to 0.87. COVID-19 PCR detected, 03/23/2020. Blood cultures x2 dated 03/23/2020, showed no growth at 48 hours. Portable chest x-ray dated 03/23/2020 showed interstitial and bilateral lobe ground-glass opacities consistent with COVID-19 pneumonia. HOSPITAL COURSE: The patient was initially admitted after presenting with COVID-19 pneumonia with associated acute hypoxic respiratory failure. The patient was initiated on remdesivir, Zithromax, and dexamethasone and placed in isolation per protocol. The patient was placed on oxygen supplementation and overall clinically stabilized with general pulmonary supportive care. The patient was evaluated by the Infectious Disease Service with recommendations to continue remdesivir as well as dexamethasone. The patient was able to wean off oxygen support intermittently, but did require up to 2 L/minute by nasal cannula when ambulatory or with exertion. The patient was also noted with hyperglycemia, initially felt to be secondary to dexamethasone; however, hemoglobin A1c was assessed showing a value of 7.9. The patient was initiated on metformin 500 mg b.i.d. and likely will need additional titration on an ongoing basis after discharge. I have examined the patient at the time of discharge and discussed followup instructions. The patient verbalizes understanding and agreement, ready for discharge on 03/27/2020. DISCHARGE MEDICATIONS: 1. Breo Ellipta one inhalation q.a.m. 2. Enteric-coated aspirin 81 mg p.o. daily. 3. Hydroxychloroquine 400 mg p.o. daily. 4. Incruse one inhalation daily. 5. Losartan/HCTZ 100/12.5 mg one tablet p.o. daily. 6. Plaquenil 200 mg p.o. b.i.d. 7. Singulair 10 mg p.o. q.a.m. 8. Dexamethasone 6 mg p.o. daily. 9. Metformin 500 mg p.o. b.i.d. 10. Albuterol sulfate 2 puffs inhaled q.6 hours p.r.n. 11. Vitamin C 1000 mg p.o. daily. 12. Zinc sulfate 220 mg p.o. daily. 13. Zithromax 500 mg p.o. daily x5 days. FOLLOWUP: The patient may follow up with a primary care provider of choice in the [place], [place] area for surveillance of diabetes mellitus. The patient may follow up with Dr. Silverio Hill as needed. CONDITION ON DISCHARGE: Stable. ACTIVITY: Ad-stephanie. DIET: ADA. CODE STATUS: Full. SPECIAL INSTRUCTIONS: Home oxygen at 2 L/minute by nasal cannula set up prior to discharge. DISPOSITION: Home, 03/27/2020. TIME SPENT: Total time preparing and coordinating discharge, 35 minutes. Job ID: [id number]
[2020-03-27] MEDS: REMDESIVIR (EUA) 100 MG in Sodium Chloride 0.9% 250 ML 230 ML IV SCH (12:06)
[2020-03-27] MEDS: HumaLOG 300 UNITS/3 ML VIAL SC PRN (12:07)
[2020-03-27 16:08] VITALS: BP 128/88; TEMP 98.3
--- NOTE | 2020-03-30 14:52 | EKG ---
Test Reason : Blood Pressure : / mmHG Vent. Rate : 102 BPM Atrial Rate : 102 BPM P-R Int : 130 ms QRS Dur : 090 ms QT Int : 346 ms P-R-T Axes : 021 -10 028 degrees QTc Int : 450 ms Sinus tachycardia Possible Left atrial enlargement Left ventricular hypertrophy Abnormal ECG Confirmed by DEEPIKA WHALEN, ANDERSON ([id number]), editorial assistant KVNG REEVES ([id number]) on 03/30/2020 2:51:57 PM Referred By: Confirmed By:ANDERSON POE MD
== END 2020-03-27 16:13 | disposition home or self-care (01) | DRG 177 ==
LOC: ERS 10:26 → T4-A 15:52
PROVIDERS: ADMIT Internal Medicine; ATTEND Internal Medicine
PROC: XW033E5 Introduction of Remdesivir Anti-infective into Peripheral Vein, Percutaneous Approach, New Technology Group 5 (ICD-10-PCS; principal; 2020-03-23)
PROC: 8E0ZXY6 Isolation (ICD-10-PCS; 2020-03-23)
DX: U07.1 COVID-19 (principal); J12.89 Other viral pneumonia; J96.01 Acute respiratory failure with hypoxia; J45.909 Unspecified asthma, uncomplicated; E11.9 Type 2 diabetes mellitus without complications; I10 Essential (primary) hypertension; E78.5 Hyperlipidemia, unspecified; Z79.51 Long term (current) use of inhaled steroids; Z79.899 Other long term (current) drug therapy; Z83.3 Family history of diabetes mellitus
CPT/HCPCS: 36415; 36416; 71045; 80048; 80053; 80076; 82550; 82728; 83036; 83690; 83880; 84484; 85025; 85379; 86140; 87040; 93005; 96365; 96367; 96372; 96374; 96375; J0456; J0696; J1100; J1650; J1815; J2060; J3490; J7050; U0002

== ENCOUNTER 2021-09-06 13:58 | Emergency (ER) | payer BC ==
[~2021-09-06 13:58] MED LIST changes: +Iopamidol 370 76% 100 ML VIAL ONE; -Iopamidol-370 76% 500 ML 1 ML ONE
[2021-09-06 14:27] LABS: #Eosinphils 0.2 thou/uL (0.0-0.7); #Lymphocytes 2.2 thou/uL (1.20-3.40); #Monocytes 0.6 thou/uL (0.11-0.59); #Neutrophils 4.8 thou/uL (1.40-6.50); %Basophils 0.6 % (0.0-1.0); %Eosinophils 2.5 % (0.0-10.0); %Lymphocytes 28.6 % (21.0-51.0); %Monocytes 7.7 % (0.0-10.0); %Neutrophils 60.6 % (42.0-75.0); Hemoglobin 16.3 g/dL (14.0-18.0); Mean Corpuscular HGB CONC 33.3 g/dL (32.0-36.0); Mean Corpuscular Hemoglobin 31.1 pg (27.0-31.0); Mean Corpuscular Volume 93.3 fL (78.0-98.0); Platelet Count 277 thou/uL (130-400); RBC Distribution Width 11.9 % (11.5-14.5); Red Blood Cell (RBC) Count 5.23 mill/uL (4.70-6.10); White Blood Cell (WBC) Count 7.8 thou/uL (4.8-10.8)
[2021-09-06 14:52] LABS: ALT (SGPT) 17 U/L (8-55); AST (SGOT) 14 U/L (5-34); Albumin 4.1 g/dL (3.5-5.0); Alkaline Phosphatase 66 U/L (40-110); Anion Gap 15 mmol/L (10-20); BUN (Urea Nitrogen) 12 mg/dL (8.4-25.7); Bilirubin, Total 0.8 mg/dL (0.2-1.2); Calc. Creatinine Clearance 0 mL/min (70-130); Calcium 8.9 mg/dL (7.8-10.44); Carbon Dioxide 22 mmol/L (22-29); Chloride 104 mmol/L (98-107); Globulin 3.4 g/dL (2.4-3.5); Glucose 148 mg/dL (70-105); Potassium 3.6 mmol/L (3.5-5.1); Protein, Total 7.5 g/dL (6.0-8.3); Sodium 137 mmol/L (136-145)
[2021-09-06] MEDS ORDERED: diphenhydrAMINE 50 MG/ML VIAL ONE (14:52)
[2021-09-06] MEDS ORDERED: Prochlorperazine 10 MG/2 ML VIAL ONE (14:56)
[2021-09-06 15:23] LABS: Prothrombin Time 12.9 sec (12.0-14.7)
[2021-09-06 16:05] LABS: Magnesium 1.9 mg/dL (1.6-2.6)
== END 2021-09-06 17:22 | disposition home or self-care (01) ==
LOC: ERS 13:58
DX: R51.9 Headache, unspecified (principal); R07.2 Precordial pain; R42 Dizziness and giddiness; R29.700 NIHSS score 0; I10 Essential (primary) hypertension; E11.9 Type 2 diabetes mellitus without complications; E78.00 Pure hypercholesterolemia, unspecified; J45.909 Unspecified asthma, uncomplicated; Z79.899 Other long term (current) drug therapy
CPT/HCPCS: 70496; 70498; 71045; 80053; 83735; 84443; 84484; 85025; 85610; 85730; 93005; 94760; 96374; 96375; J0780; J1200; Q9967

== ENCOUNTER 2022-11-24 17:30 | Outpatient (CLI) | payer BC | END 2022-11-24 17:31 | disposition home or self-care (01) | LOC: SLEEPLAB 17:30 | PROVIDERS: ATTEND Internal Medicine Critical Care Medicine | DX: G47.33 Obstructive sleep apnea (adult) (pediatric) (principal) | CPT/HCPCS: 95800 ==